=== PATIENT | male | born 1945 | race Caucasian/White ===

== ENCOUNTER → 2018-11-12 | Outpatient (REF) | payer OTHER | LOC: M LAB LCGH 09:03 | PROVIDERS: ATTEND Surgery | DX: K21.9 Gastro-esophageal reflux disease without esophagitis (principal); Z87.11 Personal history of peptic ulcer disease ==

== ENCOUNTER 2019-06-13 10:25 | Emergency (ER) | payer MEDICARE, OTHER ==
[~2019-06-13] VITALS: Ht 180.3 cm; Wt 92.3 kg
[2019-06-13] MEDS ORDERED: SIMV40TA2 PO (10:33)
[2019-06-13] MEDS ORDERED: AMOX500C (10:33)
[2019-06-13] MEDS ORDERED: atenelol PO (10:33)
[2019-06-13] MEDS ORDERED: AMPICILLIN SOD/SULBACTAM SOD 3 GM in D5W MINI-BAG PLUS 100 ML IV ONE (12:00)
[2019-06-13] MEDS ORDERED: ISOVUE-370 76% 100ML VIAL (Q9967) As Ordered ONE (12:16)
[2019-06-13 12:26] LABS: BASO % 0.2 % (0.0-1.0); EOS % 0.1 % (0.0-3.0); HEMATOCRIT 49.2 % (42.0-52.0); HEMOGLOBIN 16.4 g/dl (13.5-17.5); LYMPH # 0.9 10^3/uL (1.5-5.0); LYMPH % 7.4 % (24.0-44.0); MEAN CORPUSCULAR HEMOGLOBIN 30.9 pg (27.0-33.0); MEAN CORPUSCULAR HGB CONC 33.3 g/dl (32.0-36.5); MEAN CORPUSCULAR VOLUME 92.7 fl (80.0-96.0); MONO # 1.5 10^3/uL (0.0-0.8); MONO % 11.5 % (0.0-5.0); NEUTROPHILS # 10.3 10^3/uL (1.5-8.5); NEUTROPHILS % 80.6 % (36.0-66.0); PLATELET COUNT, AUTOMATED 168 10^3/uL (150-450); RED BLOOD COUNT 5.31 10^6/uL (4.30-6.10); WHITE BLOOD COUNT 12.7 10^3/uL (4.0-10.0)
--- NOTE | 2019-06-13 12:52 | REP ---
CT neck: 06/13/2019. Indication: Neck pain and swelling. Comparison: None. Technique: Axial CT images of the neck soft tissues were obtained following the IV administration of 75 ml Isovue 370. Coronal and sagittal reconstructions were provided. Findings: Inflammatory sequelae are noted within the right perimandibular/submandibular region without focal fluid collection. There is thickening of the right platysmus muscle. The airway is patent. No significant vascular abnormalities are detected. There is mild chronic periosteal distal thickening within the inferior maxillary sinuses. No definite dental abscess is detected. The parotid and thyroid glands are unremarkable. The visualized lungs are clear. Impression: Right facial/neck cellulitis without abscess. Electronically Signed by Byron Bansal DO 06/13/2019 12:44 P
[2019-06-13 12:55] LABS: ERYTHROCYTE SEDIMENTATION RATE 24 mm/hr (0-20)
[2019-06-13] MEDS ORDERED: NS 1,000 ML IV ONE (13:00)
[2019-06-13] MEDS ORDERED: AUGM875T28 PO (13:07)
[2019-06-13] MEDS ORDERED: ACETAMINOPHEN 325 MG TAB PO ONE (14:30)
[2019-06-13 15:04] VITALS: BP 121/64
[2019-06-14] MEDS ORDERED: AMOX500C PO (17:03)
== END 2019-06-13 15:08 | disposition home or self-care (01) ==
LOC: M ED 10:25
DX: L03.211 Cellulitis of face (principal); K08.89 Other specified disorders of teeth and supporting structures; E78.00 Pure hypercholesterolemia, unspecified
CPT/HCPCS: 70491; 80047; 85025; 85652; 86140; 96365; 99284; Q9967

== ENCOUNTER 2019-06-14 15:35 | Emergency (ER) | payer MEDICARE, OTHER ==
[~2019-06-14] VITALS: Ht 180.3 cm; Wt 92.7 kg
[~2019-06-14 15:35] MED LIST: AMOX500C; AUGM875T28 PO; SIMV40TA2 PO; atenelol PO
[2019-06-14] MEDS ORDERED: AMPICILLIN SOD/SULBACTAM SOD 3 GM in D5W MINI-BAG PLUS 100 ML IV ONE (16:45)
[2019-06-14] MEDS ORDERED: NS 500 ML IV ONE (16:45)
[2019-06-14] MEDS ORDERED: AMOX500C PO (17:03)
[2019-06-14 17:24] LABS: BASO % 0.3 % (0.0-1.0); EOS # 0.1 10^3/uL (0.0-0.5); EOS % 1.4 % (0.0-3.0); HEMATOCRIT 45.9 % (42.0-52.0); HEMOGLOBIN 15.5 g/dl (13.5-17.5); LYMPH % 10.3 % (24.0-44.0); MEAN CORPUSCULAR HGB CONC 33.8 g/dl (32.0-36.5); MEAN CORPUSCULAR VOLUME 91.8 fl (80.0-96.0); MONO # 1.2 10^3/uL (0.0-0.8); MONO % 12.1 % (0.0-5.0); NEUTROPHILS # 7.4 10^3/uL (1.5-8.5); NEUTROPHILS % 75.5 % (36.0-66.0); PLATELET COUNT, AUTOMATED 156 10^3/uL (150-450); WHITE BLOOD COUNT 9.8 10^3/uL (4.0-10.0)
[2019-06-14 17:40] LABS: BLOOD UREA NITROGEN 24 MG/DL (7-18); CALCIUM LEVEL 8.3 MG/DL (8.8-10.2); CARBON DIOXIDE LEVEL 25 MEQ/L (21-32); CHLORIDE LEVEL 104 MEQ/L (98-107); CREATININE FOR GFR 1.07 MG/DL (0.70-1.30); GLOMERULAR FILTRATION RATE > 60.0 (>42); GLUCOSE, FASTING 100 MG/DL (70-100); POTASSIUM SERUM 4.2 MEQ/L (3.5-5.1); SODIUM LEVEL 137 MEQ/L (136-145)
[2019-06-14] MEDS ORDERED: dexameTHASONE 20 MG/5 ML VIAL (J1100) IV ONE (18:30)
[2019-06-14 19:27] VITALS: BP 150/67
== END 2019-06-14 19:35 | disposition home or self-care (01) ==
LOC: M ED 15:35
DX: K04.7 Periapical abscess without sinus (principal); R22.0 Localized swelling, mass and lump, head; Z79.2 Long term (current) use of antibiotics; Z79.899 Other long term (current) drug therapy
CPT/HCPCS: 80048; 85025; 86140; 96365; 96375; 99284; J1100